=== PATIENT | male | born 1955 | race Caucasian/White ===

== ENCOUNTER 2017-12-30 12:31 | Day surgery (SDC) | payer MEDICARE, OTHER ==
--- NOTE | 2017-12-30 11:24 | HP ---
CC: Dr. Duff; Dr. Mukherjee DATE OF ADMISSION: 12/30/2017. HISTORY OF PRESENT ILLNESS: Mr. Woods is a 62-year-old white male who is admitted with a 1 cm obstructing calculus of the proximal left ureter for cystoscopy and placement of a left ureteral stent. Please refer to the detailed history and physical by Shanell Santos NP included in the chart. Mr. Woods has past history of renal calculus disease and in February 1999, I had performed a left ureteroscopy and stent placement. The stone analysis was calcium oxalate. He did very well and had a follow-up renal ultrasound in September 2010 showing minimal caliectasis, but no recurrent calculi. The patient has not been seen in my office since that time. Pt is seen in Oncology by Dr. Duff because of thrombocytopenia. He was worked up by Ms. Santos because of an elevated serum and creatinine of 2.1. His baseline has been in the vicinity of 1.3. He had a renal ultrasound which showed moderate to severe left hydronephrosis. He then had a noncontrast CT of the abdomen and pelvis which confirmed the left hydronephrosis and there was a 1.1 cm calculus in the proximal left ureter. No other abnormalities were noted and no other calculi were seen. He did have a significant hepatosplenomegaly which is consistent with his medical condition. Past history is relevant for bladder outlet obstruction symptoms. He has nocturia about two to three times, day frequency about four to five times. He reports having some hesitancy and decreased urinary stream. He denies any episodes of gross hematuria or urinary tract infection. The left hydronephrosis noted recently has been totally asymptomatic and he denies any recent episodes of renal colic, gross hematuria, or flank pain. PAST MEDICAL HISTORY AND SYSTEM REVIEW: The patient has iron deficiency and unspecified thrombocytopenia for which he is being followed by Dr. Duff. He is diabetic, maintained on Metformin 1 gm daily. He has hyperlipidemia, on Simvastatin 20 mg daily. He has chronic back pain and history of spinal stenosis for which he takes Oxycodone 5 mg twice a day and Oxymorphone 10 mg extended release twice a day. He has hypertension on Metoprolol 75 mg daily. He denies any chest pains or shortness of breath. ALLERGIES: He denies any allergies to medications. PHYSICAL EXAMINATION GENERAL: He is a pleasant, obese, white male, who is in no pain. VITAL SIGNS: Blood pressure 130/80, pulse of 60. LUNGS: Clear. HEART: Regular and rhythmic. No murmurs. ABDOMEN: Soft, obese, no tenderness and no CVA tenderness. EXTERNAL GENITALIA: He is not circumcised. No penile lesions. Normal testes and on inguinal hernias. RECTAL: Shows a slightly enlarged, but non-suspicious prostate. LABORATORY DATA: Urine analysis in my office shows +1 protein, negative otherwise. IMPRESSION: 1. Asymptomatic left hydronephrosis caused by a 1 cm calculus in the proximal left ureter. 2. Thrombocytopenia. 3. Chronic anemia. 4. Chronic back pain on opiates. 5. Hypertension. 6. Diabetes. PLAN: Cystoscopy, left retrograde pyelography, and placement of left ureteral stent in preparation for definitive treatment of the stone. I discussed the above plans in detail with the patient and his and all their questions were answered. They both understand that he will require additional procedures for definitive treatment of the stone. [id number]/[facility] #: [id number]
[~2017-12-30 12:31] MED LIST: Buffered Lidocaine 0.9% SYRIN* 5 ML/SYR SYRINGE INTRADERM ONE; Famotidine IV* 10 MG/ML 2 ML (20 mg) IV ONE
[2017-12-30] MEDS ORDERED: Famotidine IV* 10 MG/ML 2 ML (20 mg) ONE (12:54)
[2017-12-30] MEDS ORDERED: Iohexol 180 (CONTRAST) 10 ML SDV IV ONE (13:01)
[2017-12-30] MEDS ORDERED: cefTRIAXone(*) 2 GM ADDV.VIAL IVPB ONE (13:22)
[2017-12-30] MEDS ORDERED: Midazolam* 1 MG/ML 2 ML VIAL (2 MG) ONE (14:13)
[2017-12-30] MEDS ORDERED: fentaNYL* 50 MCG/ML 5 ML VIAL (250 MCG VIAL) ONE (14:13)
[2017-12-30] MEDS ORDERED: Rocuronium* 10 MG/ML VIAL ONE (14:18)
[2017-12-30] MEDS ORDERED: Ondansetron INJ* 2 MG/ML VIAL ONE (15:17)
[2017-12-30] MEDS ORDERED: Lidocaine 2% PF * 5 ML VIAL ONE (15:19)
[2017-12-30] MEDS ORDERED: Propofol* 10 MG/ML 20 ML BTL IV PUSH ONE (15:19)
[2017-12-30] MEDS ORDERED: DiMENhydriNATE IV* 50 MG/ML VIAL IV PUSH PRN (16:10)
[2017-12-30] MEDS ORDERED: fentaNYL* 50 MCG/ML 2 ML VIAL (100 MCG VIAL) IV PRN (16:10)
[2017-12-30] MEDS ORDERED: oxyCODONE/Acetamin 5/325 MG* TAB PO PRN (16:10)
[2017-12-30] MEDS ORDERED: Naloxone* 0.4 MG/ML 1 ML VIAL IV PRN (16:10)
[2017-12-30] MEDS ORDERED: PROCHLORPERAZINE INJ 5 MG/ML 2 ML VIAL IV PRN (16:10)
[2017-12-30] MEDS ORDERED: Acetaminophen TAB* 325 MG PO PRN (16:10)
[2017-12-30 16:13] VITALS: BP 125/79
[2017-12-30] MEDS ORDERED: oxyCODONE/Acetamin 5/325 MG* TAB ONE (16:31)
--- NOTE | 2017-12-31 08:06 | OP ---
CC: Dr. Mukherjee; Dr. Duff OPERATIVE REPORT: DATE OF OPERATION: 12/30/17 DATE OF : 55 SURGEON: Dr. Reveles. ANESTHESIOLOGIST: Dr. Paniagua. ANESTHESIA: General. PRE-OP DIAGNOSES: 1. Left proximal ureteral calculus. 2. Left hydronephrosis due to above. 3. Decreased renal function due to above. POST-OP DIAGNOSES: 1. Left proximal ureteral calculus. 2. Left hydronephrosis due to above. 3. Decreased renal function due to above. OPERATIVE PROCEDURE: 1. Cystoscopy. 2. Left retrograde pyelography. 3. Placement of left ureteral stent (6-Cape Verdean). INDICATION FOR PROCEDURE: Mr. Woods is a 62-year-old white male who gives a distant history of renal calculus disease and who was referred to my office yesterday by Ms. Shanell Santos, from Dr. Duff's office, because of an elevated serum creatinine of 2.1, left hydronephrosis, and a 1 cm obstructing calculus in the proximal left ureter. Because of the above history and finding, the patient is taken to the operating room on a semiurgent basis for left ureteral stent placement. PATHOLOGY AT CYSTOSCOPY: The penile and bulbar urethrae looked normal. The prostatic urethra measured 2.5 cm in length and there was only slight enlargement of the prostate. Examination of the bladder showed normal ureteral orifices. No suspicious bladder lesions were seen. No calculi or diverticula were noted. On fluoroscopy, the left ureteral calculus could not be seen. Upon left retrograde pyelography, there was severe left hydronephrosis. Hydronephrotic drip was noted from the left kidney. DESCRIPTION OF PROCEDURE: After successful general anesthesia with the patient in the dorsal lithotomy position and after proper scrubbing and draping, cystoscopy was performed. The bladder was carefully inspected and the above findings were noted. A flexible-tip guidewire was then introduced into the left orifice and positioned in the area of the renal pelvis. An open-ended catheter was fed on top of the guidewire and positioned in the renal pelvis. There was a hydronephrotic drip noted. Contrast was then injected delineating a dilated collecting system. A size 6-C[place] Verdean stent was then placed with the proximal end coiling in the renal pelvis and the distal end coiling inside the bladder. There was prompt drainage of contrast from the kidney. A 16-[place] catheter was then passed inside the bladder. The patient tolerated the procedure well and left the operating room in good condition. The plan is to obtain a KUB postoperatively to plan the definitive treatment of the stone. [id number]/[facility] #: [id number] MTDD
== END 2017-12-30 16:45 | disposition home or self-care (01) ==
LOC: OR 12:31
PROVIDERS: ATTEND Urology
DX: N13.2 Hydronephrosis with renal and ureteral calculous obstruction (principal); Z87.442 Personal history of urinary calculi; D69.6 Thrombocytopenia, unspecified; R16.2 Hepatomegaly with splenomegaly, not elsewhere classified; E11.9 Type 2 diabetes mellitus without complications; Z79.84 Long term (current) use of oral hypoglycemic drugs; E78.5 Hyperlipidemia, unspecified; I10 Essential (primary) hypertension; M54.9 Dorsalgia, unspecified; Z79.891 Long term (current) use of opiate analgesic; D64.9 Anemia, unspecified
CPT/HCPCS: 74018; 74420; A9270-GY; C1876; J0696; J2250; J2405; J2704; J3010

== ENCOUNTER 2018-01-25 07:15 | Day surgery (SDC) | payer MEDICARE, OTHER ==
--- NOTE | 2018-01-16 21:07 | HP ---
CC: Dr. Duff.* HISTORY AND PHYSICAL: DATE OF PLANNED ADMISSION AND SURGERY: 01/25/18 HISTORY OF PRESENT ILLNESS: Mr. Woods is a 62-year-old white male, who is admitted with a left ureteral calculus for cystoscopy, left ureteroscopy, laser lithotripsy, and left ureteral stent exchange. Please refer to my detailed history and physical and to the history and physical by Ms. Shanell Santos, oncolgy N.PClement, included in his admission for 12/30/17. Mr. Woods is a 62-year-old white male, who was diagnosed on a CT scan for abdominal pain and decreased renal function to have a 1-cm obstructing calculus in the proximal left ureter associated with an elevated serum creatinine. He was taken to the operating room on 12/30/17, and underwent a cystoscopy and a placement of left ureteral stent. Bood work following the procedure showed the renal function to have improved. KUB failed to show any calcification along the ureter indicating that the stone is radiolucent. The patient is known to have history of gout, and that would put him at a higher risk of having uric acid renal calculi. The patient has been doing well since the stent placement. He is now admitted for treatment of the stone. PAST MEDICAL HISTORY AND SYSTEM REVIEW: The patient is followed by Dr. Duff because of thrombocytopenia. He is diabetic, maintained on metformin 1 g daily. He has hyperlipidemia, on simvastatin 20 mg daily. He has chronic back pain and history of spinal stenosis for which he takes oxycodone 5 mg twice a day and oxymorphone 10 mg extended release twice a day. He has hypertension, on metoprolol 75 mg daily. He denies any chest pain or shortness of breath. ALLERGIES: The patient denies any allergies to medications. FAMILY HISTORY: lung cancer in his mother. SOCIAL HISTORY: He is and lives with his . He has 2 children. He is a nonsmoker and denies any alcohol intake. PHYSICAL EXAMINATION GENERAL: He is a moderately overweight white male, who is in no pain. VITAL SIGNS: Blood pressure 130/80, pulse of 60. LUNGS: Clear. HEART: Regular and rhythmic. No murmurs. ABDOMEN: Soft. No masses. No tenderness and no CVA tenderness. EXTERNAL GENITALIA: Normal. RECTAL EXAM: Showed a slightly enlarged, but nonsuspicious prostate. IMPRESSION: 1. A 1-cm proximal, radiolucent left ureteral calculus, probably uric acid in composition. 2. Status post placement of left ureteral stent. 3. Thrombocytopenia. 4. Chronic back pain, on opiates. 5. Hypertension. 6. Diabetes mellitus. PLAN: Cystoscopy, left ureteroscopy, laser lithotripsy, and left ureteral stent exchange. I discussed the above plans with the patient, all his questions were answered. [id number]/[facility] #: [id number] [place]
[~2018-01-25 07:15] MED LIST changes: +Metoclopramide IV* 5 MG/ML 2 ML VIAL IV SLOW PU ONE
[2018-01-25] MEDS ORDERED: oxyCODONE SR TAB(*) 10 MG TAB.SR ONE (07:49)
[2018-01-25] MEDS ORDERED: Metoclopramide IV* 5 MG/ML 2 ML VIAL ONE (07:49)
[2018-01-25] MEDS ORDERED: cefTRIAXone(*) 2 GM ADDV.VIAL IVPB ONE (07:50)
[2018-01-25] MEDS ORDERED: Famotidine IV* 10 MG/ML 2 ML (20 mg) ONE (07:50)
[2018-01-25] MEDS ORDERED: fentaNYL* 50 MCG/ML 2 ML VIAL (100 MCG VIAL) ONE (08:09)
[2018-01-25] MEDS ORDERED: Midazolam* 1 MG/ML 2 ML VIAL (2 MG) ONE (08:09)
[2018-01-25] MEDS ORDERED: Iohexol 180 (CONTRAST) 10 ML SDV IV ONE (08:48)
[2018-01-25] MEDS ORDERED: Ondansetron INJ* 2 MG/ML VIAL ONE (09:50)
[2018-01-25] MEDS ORDERED: fentaNYL* 50 MCG/ML 2 ML VIAL (100 MCG VIAL) IV PRN (10:51)
[2018-01-25] MEDS ORDERED: Naloxone* 0.4 MG/ML 1 ML VIAL IV PRN (10:51)
[2018-01-25] MEDS ORDERED: DiMENhydriNATE IV* 50 MG/ML VIAL IV PUSH PRN (10:51)
[2018-01-25] MEDS ORDERED: Propofol* 10 MG/ML 20 ML BTL ONE (11:13)
[2018-01-25 11:43] VITALS: BP 115/67
--- NOTE | 2018-01-25 16:15 | OP ---
CC: Dr. Mukherjee; Dr. Duff * DATE OF OPERATION: 01/25/18 - [facility] DATE OF : 55 SURGEON: Joss Reveles MD ANESTHESIOLOGIST: Dr. Brad Mccarthy. ANESTHESIA: General. PRE-OP DIAGNOSES: 1. Proximal left ureteral calculus. 2. Status post placement left ureteral stent. POST-OP DIAGNOSIS: 1. Left renal calculus (1 cm). 2. Status post placement, left ureteral stent. OPERATIVE PROCEDURE: 1. Cystoscopy. 2. Left ureteroscopy and extraction of left ureteral calculi. 3. Left pyeloscopy and laser lithotripsy of left renal calculus (1 cm). INDICATIONS FOR PROCEDURE: Mr. Woods is a 62-year-old white male, who presented about 3 weeks ago with decreased renal function and an obstructing 1 cm calculus in the proximal left ureter. He had urgent placement of a left ureteral stent. His renal function recovered. Postoperative KUB showed the stent in good position, but the calculus could not be visualized suggestive that it is uric acid in composition. The patient is brought in for treatment of the stone. PATHOLOGY: At Fluoroscopy the left ureteral stent was in good position, and again, the calculus could not be visualized, indicating it is a radiolucent stone. At cystoscopy, the penile and bulbar urethrae looked normal. The prostatic urethra measured about 2.5 cm in length and there was only a mild obstruction by the prostate. Examination of the bladder showed the distal limb of the stent coming from the left orifice. The bladder wall looked normal. There were no suspicious bladder lesions seen. Upon left ureteroscopy, stone fragments measuring about 5 mm each were visualized and were extracted. They had dark color and probably are calcifications that formed over the stent rather than primary ureteral calculi. The large calculus was not seen in the proximal ureter. At flexible ureteroscopy and pyeloscopy, the calculus was noted in an upper pole calyx of the left kidney. It measured about 1 cm in size. It was yellowish in color suggestive it is uric acid in composition. DESCRIPTION OF PROCEDURE: After successful general anesthesia, the patient was placed in the lithotomy position and was prepped and draped for a cystoscopy. Cystoscopy was performed. The left ureteral stent was removed and the guidewire was introduced inside the left ureter and positioned in the renal pelvis. A 6.5 semi-rigid ureteroscope was then introduced inside the bladder. A flexible tip basket was introduced through the port of the ureteroscope and the flexible tip was then introduced into the left ureter alongside the guidewire. That allowed the atraumatic introduction of the ureteroscope in the ureter, which was already dilated from the stent. The ureteroscope was then passed all the way into the ureter. Several stone fragments were noted and they were extracted with a basket and sent for stone analysis. The ureteroscope was introduced all the way into the proximal ureter at the ureteropelvic junction and the larger calculus was not visualized. The ureteroscope was then removed keeping the guidewire in place. A 10-12 Guyanese access sheath was fed on top of the guidewire and positioned in the mid ureter. A flexible ureteroscope was then introduced through the access sheath and a guidewire was passed through the port of the ureteroscope, allowing the introduction of the ureteroscope inside the renal pelvis in an atraumatic way. The guidewire was removed keeping the ureteroscope in place. The calyces were inspected and the calculus was identified in an upper to mid pole calyx. Using the 200 micron laser fiber, the stone was broken into multiple fragments. The fragments were felt to be small enough they should pass spontaneously. Because of the relatively narrow access sheath, no attempt was made at extraction of the fragments. After good fragmentation of the stone, the ureteroscope and access sheath were removed, and the guide wire repositioned. Retrograde pyelography was performed showing no extravasation. A black silicon stent, 26 cm long, 7-Guyanese was then positioned with the proximal end coiling in the renal pelvis and the distal end coiling inside the bladder. There was good drainage of contrast from the kidney and no extravasation. The patient tolerated the procedure well and left the operating room in good condition. The plan is to place the patient on urinary alkalinization with potassium citrate 20 mEq twice a day, and on Allopurinol 300 mg daily (Pt has elevated serum Uric Acid at 8.5) The plan is to leave the stent for 3 to 4 weeks to allow for the stone fragments to be dissolved and then the stent will be removed in the office as an outpatient. [id number]/[facility] #: [id number] MTDD
== END 2018-01-25 11:58 | disposition home or self-care (01) ==
LOC: OR 07:15
PROVIDERS: ATTEND Urology
DX: N13.2 Hydronephrosis with renal and ureteral calculous obstruction (principal); D69.6 Thrombocytopenia, unspecified; I10 Essential (primary) hypertension; E11.9 Type 2 diabetes mellitus without complications; Z79.84 Long term (current) use of oral hypoglycemic drugs; E78.5 Hyperlipidemia, unspecified; M54.9 Dorsalgia, unspecified
CPT/HCPCS: 36415; 74420; 82365; 84550; 88300; A9270-GY; C1876; J0696; J2250; J2405; J2704; J2765; J3010

== ENCOUNTER 2018-08-09 10:08 | Inpatient (IN) | payer MEDICARE, OTHER ==
[~2018-08-09 10:08] MED LIST changes: -Buffered Lidocaine 0.9% SYRIN* 5 ML/SYR SYRINGE INTRADERM ONE; +Buffered Lidocaine 1% SYRIN* 1 ML/SYRINGE INTRADERM ONE; -Famotidine IV* 10 MG/ML 2 ML (20 mg) IV ONE; +Famotidine IV* 10 MG/ML 2 ML (20 mg) ONE; +Lactated Ringers 1000 ML Bag* 1,000 ML IV SCH; -Metoclopramide IV* 5 MG/ML 2 ML VIAL IV SLOW PU ONE
--- OUTSIDE RECORDS SUMMARY | 2018-08-09 10:13 | XMS REPORT | Continuity of Care Document ---
:1955 External Reference #:[id number] Author Name Jacque Landaverde Care Team Providers Name Role Phone Quirino Mukherjee MD Primary Care Physician Unavailable Payers Date Identification Numbers Payment Provider Subscriber Policy Number: [id number] Medicare Huy Woods PayID: [id number] [address] [place] [address] Effective: 2016 Policy Number: [id number] [facility] Huy Woods PayID: [id number] [address] [place] [address] Expires: 2016 Policy Number: [id number] [facility] Huy Woods Group Number: [id number] [address] PayID: [id number] Gerardo# [id number] [place] [address] Onset: 2012 Policy Number: [id number] [facility] Huy Woods Group Number: [id number] [address] PayID: [id number] [address] Effective: 2011 Policy Number: [id number] [employer] Huy Woods Expires: 2012 PayID: [id number] [address] [address] [place]anez [address] Effective: 2013 Policy Number: [id number] [employer] Huy Woods Expires: 2015 PayID: [id number] [address] [address] [place] Yanez [address] Problems Active Problems Provider Date Lumbosacral spondylosis without myelopathy Da Mancia M.D. Onset: Lumbar sprain Da Mancia M.D. Onset: 01/16/2013 Lumbar spondylosis Da Mancia M.D. Onset: 12/09/2014 Sciatica Da Mancia M.D. Onset: 01/07/2015 Right bundle branch block Angela Hilton M.D. Onset: 11/11/2016 Preoperative cardiovascular examination Angela Hilton M.D. Onset: 06/15/2018 Family History Date Family Member(s) Observation Comments General Heart Disease General Cancer General Diabetes Father Heart Disease of [place] 65 yo. : (age 65 Father due to Heart Years) Disease Mother Lung Cancer 68 yo. 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 Tobacco Use Start: Unknown Never Smoked Cigarettes Tobacco Use Start: Unknown Secondhand smoke As a child, inside Smoking Status Reviewed: 07/11/18 Secondhand smoke As a child, inside ETOH Use Denies alcohol use Tobacco Use Start: Unknown Patient has never smoked Recreational Drug Use Denies Drug Use Exercise Type/Frequency Exercises sporadically walking 2 times per week Allergies, Adverse Reactions, Alerts Description No Known Drug Allergies Medications Active Medications SIG Qnty Indications Ordering Date Provider Potassium Citrate ER 2 by mouth every Gris Maya, 06/13/2018 day 10Meq (1080 mg) Tablets ER Vitamin C 1 by mouth every Unknown 1000mg day Tablets Allopurinol 1 by mouth every Unknown 300mg day Tablets Oxymorphone HCL ER 1 by mouth two Unknown times per day 10mg Tablets ER 12HR Vitamin B12 1 tablet po daily Unknown 1000mg Simvastatin 1 tablet po daily Quirino Mukherjee 20mg Lexi MD Tablets Irbesartan 1 by mouth every Unknown 150mg day Am Tablets Metformin HCL ER 1 by mouth with Unknown breakfast and 2 500mg Tablets ER with dinner 24HR Oxycodone HCL 1 by mouth four Unknown 5mg times a day as Tablets needed Arthrotec take one tablet by Unknown 75-0.2mg mouth twice a day Tablets DR as needed Gabapentin 1 by mouth three Unknown 300mg times daily Prilosec 1 po qd 30caps Quirino Mukherjee 20mg MD Lexi Capsules DR Glucosamine 1 po twice daily Quirino Mukherjee Chondroitin 1500 MD Lexi Complex 1500Com Capsules Metoprolol Tartrate 1 1/2 po daily 180tabs Quirino Mukherjee MD Lexi 50mg Tablets History Medications Dexamethasone take at bedtime 1tabs E27.8 Rajesh Lowery MD 05/10/2018 - 1mg Tablets on the evening 06/12/2018 prior to in the morning lab draw Acupuncture prn for pain Da Jerry 06/14/2014 - Jenny Mancia 05/09/2018 Mobic once daily with 60tabs Steffen Valladares, 07/18/2013 - 15mg Tablets food as needed M.D. 03/19/2014 Valium 1 by mouth 2 2tabs Cassius Galeano, 07/04/2013 - 5mg Tablets hours prior to M.D. 07/13/2013 test, may take one more 1 hour prior as needed anxiety Neurontin One tab po after 90caps Cassius Galeano, 05/11/2012 - 100mg Capsules work, one after M.D. 01/16/2013 dinner, 2 before bed Valium 1 tab po 2 hours 2tabs Cassius Galeano, 03/09/2012 - 5mg Tablets prior to mri june M.D. 10/31/2012 take one more q 1 hr prn anxiety Alprazolam x1 for stress Unknown - 0.25mg Tablets test 07/06/2018 Potassium Chloride 2 by mouth twice Unknown - Tracy ER daily 06/13/2018 10Meq Tablets ER Vitamin C Gummie daily Unknown - 06/13/2018 Ferrex 150 1 cap po 4 x per Ozzie Duff - 150mg Capsules lisa Conn MD 05/09/2018 Fiber Therapy 1 table po daily Unknown - Am 05/09/2018 Allergy Relief 1 tablet po at Unknown - bedtime as 07/10/2018 needed Opana ER 1 tablet po Unknown - 15mg Tab ER 12H twice daily 11/10/2016 Abuse-Det Oxymorphone HCL ER take 1 tab by Unknown - 15mg mouth at night 04/26/2018 Tablets ER 12HR Meloxicam Unknown - 12/19/2013 Oxycontin 1 po bid- not on Garrett, - 20mg T12a med list MD Sundar 10/19/2016 Oxycontin 1 po bid 60units Froylan, - 10mg T12a MD Cassius 04/20/2013 Oxycodone/Acetaminophe 2 tablet by 30caplewis Tucker, - n mouth every 4-6 MD Sundar 03/19/2014 5-500mg Capsules hours as needed Micardis 1 po qd 90tabs Quirino Mukherjee - 40mg Tablets MD Lexi 11/10/2016 Neurontin take one capsule 40caps Quirino Mukherjee - 300mg Capsules by [facility] three MD Lexi 03/19/2014 times a daay Medications Administered in Office Medication SIG Qnty Indications Ordering Provider Date Inj, Regadenoson, 0.1 MG Elan Culver, DO [facility] 07/04/2018 Injection Technetium TC 99M Elan Culver, DO [facility] 07/04/2018 Tetrofosmin, Per Unit Dose Up To 40 Millicuries Injection Technetium TC 99M Elan Culver, DO [facility] 07/04/2018 Tetrofosmin, Per Unit Dose Up To 40 Millicuries Injection Technetium TC 99M [facility] 11/17/2016 Tetrofosmin, Per Unit Dose Up To 40 Millicuries Injection Inj, Regadenoson, 0.1 MG Elan Culver, DO [facility] 11/16/2016 Injection Technetium TC 99M Elan Culver, DO [facility] 11/16/2016 Tetrofosmin, Per Unit Dose Up To 40 Millicuries Injection Vital Signs Date Vital Result Comment 07/11/2018 8:17am Height 70 inches 5'10" Weight 272.00 lb Heart Rate 66 /min BP Systolic Sitting 116 mmHg right upper arm large cuff BP Diastolic Sitting 68 mmHg right upper arm large cuff Respiratory Rate 12 /min O2 % BldC Oximetry 94 % BMI (Body Mass Index) 39.0 kg/m2 07/07/2018 8:09am Height 70 inches 5'10" Weight 274.12 lb with shoes Heart Rate 72 /min BP Systolic Sitting 140 mmHg BP Diastolic Sitting 72 mmHg BP Systolic Standing 136 mmHg BP Diastolic Standing 68 mmHg BMI (Body Mass Index) 39.3 kg/m2 Ejection Fraction 60-65% Echo 06/22/18 06/15/2018 3:27pm Height 70 inches 5'10" Weight 276.00 lb with out shoes Heart Rate 76 /min BP Systolic Sitting 110 mmHg Lue lg cuff BP Diastolic Sitting 70 mmHg Lue lg cuff BP Systolic Standing 106 mmHg Lue lg cuff BP Diastolic Standing 70 mmHg Lue lg cuff Respiratory Rate 16 /min BMI (Body Mass Index) 39.6 kg/m2 06/13/2018 8:07am Height 70 inches 5'10" Weight 274.12 lb Heart Rate 55 /min BP Systolic Sitting 128 mmHg Lue large cuff BP Diastolic Sitting 70 mmHg Lue large cuff Respiratory Rate 16 /min O2 % BldC Oximetry 97 % On Ra BMI (Body Mass Index) 39.3 kg/m2 Neck Circumference in inches 19.5 05/10/2018 11:04am Height 70 inches 5'10" Weight 279.00 lb w/ shoes Heart Rate 74 /min BP Systolic Sitting 147 mmHg BP Diastolic Sitting 70 mmHg BMI (Body Mass Index) 40.0 kg/m2 11/19/2016 10:00am Height 70 inches 5'10" Weight 289.00 lb w/ shoes Heart Rate 60 /min reg BP Systolic Sitting 136 mmHg Lue, lg cuff BP Diastolic Sitting 90 mmHg Lue, lg cuff BP Systolic Standing 130 mmHg Lue BP Diastolic Standing 84 mmHg Lue Respiratory Rate 16 /min BMI (Body Mass Index) 41.5 kg/m2 Ejection Fraction 72% as of 11/16/16 stress test 11/11/2016 8:25am Height 70 inches 5'10" Weight 293.00 lb with shoes Heart Rate 64 /min reg with ectopy BP Systolic 120 mmHg Rue lg cuff BP Diastolic 78 mmHg Rue lg cuff BP Systolic Sitting 152 mmHg Lue lg cuff BP Diastolic Sitting 70 mmHg Lue lg cuff BP Systolic Standing 136 mmHg Lue lg cuff BP Diastolic Standing 80 mmHg Lue lg cuff Respiratory Rate 16 /min BMI (Body Mass Index) 42.0 kg/m2 05/20/2015 9:52am Height 70 inches 5'10" Weight 295.00 lb Heart Rate 78 /min BP Systolic Sitting 140 mmHg BP Diastolic Sitting 90 mmHg Pain Level 5 BMI (Body Mass Index) 42.3 kg/m2 03/11/2015 9:35am Height 70 inches 5'10" Weight 295.00 lb Heart Rate 78 /min BP Systolic Sitting 150 mmHg BP Diastolic Sitting 80 mmHg Pain Level 4 BMI (Body Mass Index) 42.3 kg/m2 01/07/2015 10:50am Height 70 inches 5'10" Weight 295.00 lb BP Systolic Sitting 130 mmHg BP Diastolic Sitting 90 mmHg Pain Level 4 back BMI (Body Mass Index) 42.3 kg/m2 12/09/2014 10:53am Height 70 inches 5'10" Weight 295.00 lb Heart Rate 76 /min BP Systolic Sitting 144 mmHg BP Diastolic Sitting 80 mmHg Pain Level 5 back BMI (Body Mass Index) 42.3 kg/m2 09/13/2014 10:40am Height 70 inches 5'10" Weight 295.00 lb Heart Rate 60 /min BP Systolic Sitting 148 mmHg BP Diastolic Sitting 90 mmHg Pain Level 3 back/r leg BMI (Body Mass Index) 42.3 kg/m2 06/14/2014 9:34am Height 70 inches 5'10" Weight 295.00 lb Heart Rate 62 /min BP Systolic Sitting 138 mmHg BP Diastolic Sitting 84 mmHg Pain Level 2 back BMI (Body Mass Index) 42.3 kg/m2 03/19/2014 10:13am Height 70 inches 5'10" Weight 296.00 lb Heart Rate 78 /min BP Systolic Sitting 128 mmHg BP Diastolic Sitting 70 mmHg Pain Level 3 back BMI (Body Mass Index) 42.5 kg/m2 12/19/2013 10:34am Height 70 inches 5'10" Weight 281.00 lb Heart Rate 60 /min BP Systolic Sitting 124 mmHg lg BP Diastolic Sitting 80 mmHg lg Pain Level 3 back BMI (Body Mass Index) 40.3 kg/m2 12/12/2013 9:28am Height 70 inches 5'10" Weight 285.00 lb Heart Rate 66 /min BMI (Body Mass Index) 40.9 kg/m2 10/15/2013 9:47am Height 70 inches 5'10" Weight 285.00 lb Heart Rate 68 /min BP Systolic Sitting 124 mmHg BP Diastolic Sitting 70 mmHg Pain Level 2 back & R leg BMI (Body Mass Index) 40.9 kg/m2 10/10/2013 8:47am Height 70 inches 5'10" Heart Rate 64 /min BP Systolic 126 mmHg BP Diastolic 77 mmHg 08/29/2013 2:37pm Height 70 inches 5'10" Weight 284.00 lb Heart Rate 78 /min BP Systolic 121 mmHg BP Diastolic 71 mmHg BMI (Body Mass Index) 40.7 kg/m2 07/18/2013 9:12am Height 70 inches 5'10" Weight 284.00 lb Heart Rate 76 /min BMI (Body Mass Index) 40.7 kg/m2 07/13/2013 9:49am Height 70 inches 5'10" Weight 284.00 lb BP Systolic 122 mmHg BP Diastolic 80 mmHg Pain Level 3 back BMI (Body Mass Index) 40.7 kg/m2 07/04/2013 9:18am Height 70 inches 5'10" Heart Rate 76 /min BP Systolic 132 mmHg BP Diastolic 79 mmHg 05/30/2013 10:02am Height 70 inches 5'10" Heart Rate 74 /min BP Systolic 139 mmHg BP Diastolic 81 mmHg 04/20/2013 10:25am Height 70 inches 5'10" Weight 293.00 lb BP Systolic 132 mmHg BP Diastolic 82 mmHg Pain Level 2 back BMI (Body Mass Index) 42.0 kg/m2 01/16/2013 9:16am Height 70 inches 5'10" Weight 275.00 lb BP Systolic 148 mmHg BP Diastolic 90 mmHg Pain Level 2 low back BMI (Body Mass Index) 39.5 kg/m2 10/31/2012 10:02am Height 70 inches 5'10" Weight 294.00 lb BP Systolic 140 mmHg BP Diastolic 90 mmHg Pain Level 2 left lower back BMI (Body Mass Index) 42.2 kg/m2 Results Test Date Facility Test Result H/L Range Note Laboratory test 05/16/2018 [facility] Cortisol 1.77 g/dL [address] [place] [address] [phone] Acth <5.0 pg/mL Abnormal 2 Renin 2.3 ng/mL/h 3 Catecholamine 24HR 05/15/2018 [facility] Urine Collection 24 h Urine Fract [address] [place] [address] [phone] Urine Total Volume 3000 mL Urine Norepinephrine 39 mcg/24h 15-80 Urine Epinephrine 2.1 mcg/24h <21 Urine Dopamine 219 mcg/24h 65-400 4 Creatinine 24HR 05/15/2018 [facility] Urine Collection 24 hr Urine [address] [place] [address] [phone] Urine Total Volume 3000 mL Urine Creatinine Concentration 65.23 mg/dL Urine Creatinine/24 Hour 1956.90 mg/24Hr High 600-1800 Urine Metanephrines 05/15/2018 [facility] Urine 135 mcg/24h [address] [place] [address] [phone] Urine Normetanephrine 573 mcg/24h 6 Urine Total Metanephrines 708 mcg/24h 7 Urine Collection Duration 24 h Urine Volume 3000 mL 8 Cortisol Free 05/15/2018 [facility] Urine Free 63 mcg/24h Abnormal 3.5-45 24HR Urine [address] [place] [address] [phone] Urine Collection Duration 24 h Urine Total Volume 3000 mL 9 Basic Metabolic Panel 05/15/2018 [facility] Sodium 138 mmol/L N 135-[address] [place] [address] [phone] Potassium 4.8 mmol/L N 3.5-5.0 Chloride 102 mmol/L N 101-111 Co2 Carbon Dioxide 28 mmol/L N 22-32 Anion Gap 8 mmol/L N 2-11 Glucose 179 mg/dL High 70-100 Blood Urea Nitrogen 24 mg/dL N 6-24 Creatinine 1.31 mg/dL High 0.67-1.17 BUN/Creatinine Ratio 18.3 N 8-20 Calcium 9.2 mg/dL N 8.6-10.3 Egfr Non- 55.3 >60 Egfr 66.9 >60 10 Metanephrines 05/15/2018 [facility] Plasma Free 0.78 <0.[address] Normetanephrine nmol/[place] [address] [phone] Plasma Free Metanephrine <0.20 nmol/L <0.50 11 Laboratory test 05/15/2018 [facility] Aldosterone <4.0 ng/dL <=21 [address] [place] [address] [phone] Laboratory test 05/10/2018 Outpatient Receptionist In House Glucose Random 171 finding Drug Abuse 20 08/15/2014 [facility] Urine Negative N [address] Amphetamine ng/[place] [address] [phone] Urine Barbiturates Negative ng/mL N 14 Urine Benzodiazepines Negative ng/mL N 15 Urine Cocaine Negative ng/mL N 16 Urine Methadone Negative ng/mL N 17 Urine Opiates Presumptive Posi <SEE NOTE> ng/mL N 18 Urine Phencyclidine Negative ng/mL N Cutoff: 25 Urine Tetrahydrocannabinol Negative ng/mL N Cutoff: 20 19 Urine Oxycodone Presumptive Posi <SEE NOTE> ng/mL N 20 Confirm 08/15/2014 [facility] Urine Codeine Negative ng/mL N [address] Confirmation (GC/MS) [place] [address] [phone] Urine Hydrocodone Confirm Negative ng/mL N 22 Urine Hydromorphone Confirm Negative ng/mL N 23 Urine Morphine Confirm Negative ng/mL N 24 Urine Oxymorphone Confirm 6100 ng/mL N 25 Urine Oxycodone Confirm 6100 ng/mL N 26 Urine Opiates Interpretation See Comment N 27 1 AM 8.7-22.4 PM <10 2 REFERENCE VALUE 7.2-63 (a.m. collection) Test Performed by: [facility] [address] [place] [address] 3 REFERENCE VALUE (Peripheral vein specimen) Na-deplete, upright: Mean: 5.9 Range: 2.9-10.8 Na-replete, upright: Mean: 1.0 Range: < or=0.6-3.0 ADDITIONAL INFORMATION Testing performed by Liquid Chromatography-Tandem Mass Spectrometry (LC-MS/MS). This test was developed and its performance characteristics determined by [facility] in a manner consistent with CLIA requirements. This test has not been cleared or approved by the U.S. Food and Drug Administration. Test Performed by: [facility] [place] [facility] [place] [id number] 4 ADDITIONAL INFORMATION This test was developed and its performance characteristics determined by [facility] in a manner consistent with CLIA requirements. This test has not been cleared or approved by the U.S. Food and Drug Administration. Test Performed by: [facility] [place] [employer] [address] [place] [id number] 5 REFERENCE VALUE 44-261 (Normotensive) <400 (Hypertensive) 6 REFERENCE VALUE 138-521 (Normotensive) <900 (Hypertensive) 7 REFERENCE VALUE 233-716 (Normotensive) <1300 (Hypertensive) 8 ADDITIONAL INFORMATION This test was developed and its performance characteristics determined by [facility] in a manner consistent with CLIA requirements. This test has not been cleared or approved by the U.S. Food and Drug Administration. Test Performed by: [facility] [place] [address] [place] [address] 9 ADDITIONAL INFORMATION This test was developed and its performance characteristics determined by [facility] in a manner consistent with CLIA requirements. This test has not been cleared or approved by the U.S. Food and Drug Administration. Test Performed by: [facility] - [address] [address] Because ethnic data is not always readily available, this report includes an eGFR for both -Americans and non- Americans. The National Kidney Disease Education Program (NKDEP) does not endorse the use of the MDRD equation for patients that are not between the ages of 18 and 70, are , have extremes of body size, muscle mass, or nutritional status, or are non- or non-. According to the National Kidney Foundation, irrespective of diagnosis, the stage of the disease is based on the level of kidney function: Stage Description GFR(mL/min/1.73 m(2)) 1 Kidney damage with normal or decreased GFR 90 2 Kidney damage with mild decrease in GFR 60-89 3 Moderate decrease in GFR 30-59 4 Severe decrease in GFR 15-29 5 Kidney failure <15 (or dialysis) 11 ADDITIONAL INFORMATION This test was developed and its performance characteristics determined by [facility] in a manner consistent with CLIA requirements. This test has not been cleared or approved by the U.S. Food and Drug Administration. Test Performed by: [facility] - [address] [address] ADDITIONAL INFORMATION Reference range for patients 11 years and older is based on upright A.M. collection from subjects without sodium restrictions. This test was developed and its performance characteristics determined by [facility] in a manner consistent with CLIA requirements. This test has not been cleared or approved by the U.S. Food and Drug Administration. Test Performed by: [facility] [address] , [place] [address] 13 REFERENCE VALUE Cutoff: 500 14 REFERENCE VALUE Cutoff: 200 15 REFERENCE VALUE Cutoff: 200 16 REFERENCE VALUE Cutoff: 150 17 REFERENCE VALUE Cutoff: 150 18 Presumptive Positive Drug confirmation to follow. Presumptive Positive means that the screening method is positive, but the test needs to be run by a confirmatory method before being finalized. REFERENCE VALUE Cutoff: 300 19 ADDITIONAL INFORMATION This report is intended for use in clinical monitoring or management of patients. It is not intended for use in employment-related testing. 20 Presumptive Positive Drug confirmation to follow. Presumptive Positive means that the screening method is positive, but the test needs to be run by a confirmatory method before being finalized. REFERENCE VALUE Cutoff: 100 ADDITIONAL INFORMATION This report is intended for use in clinical monitoring or management of patients. It is not intended for use in employment-related testing. Test Performed by: [facility] - [address] [address] [employer] Trimmer: Cesar Nielsen II, M.D., Ph.D. 21 REFERENCE VALUE Cutoff: 100 22 REFERENCE VALUE Cutoff: 100 23 REFERENCE VALUE Cutoff: 100 24 REFERENCE VALUE Cutoff: 100 25 REFERENCE VALUE Cutoff: 100 26 REFERENCE VALUE Cutoff: 100 27 Positive. Codeine testing performed at a x2 dilution; limit of quantitation is elevated. ADDITIONAL INFORMATION This report is intended for use in clinical monitoring and management of patients. It is not intended for use in employment-related testing. Test Performed by: [facility] - [address] [address] [employer] Trimmer: Cesar Nielsen II, M.D., Ph.D. Procedures Date Code Description Status 07/04/2018 37410 Stress Test Completed 07/04/2018 99951 Myocardial Perfusion Imaging Tomographic (Spect) Multiple Completed Studies 06/22/2018 66453 ECHO Transthoracic, Real-Time 2D With Doppler And Color Completed Flow 06/17/2018 62409 Sleep Study Unattended,HRT Rate,Oxygen Sat,Resp Completed Effort/Airflow 06/15/2018 34248 EKG Tracing & Interpretation Completed 11/16/2016 21821 Stress Test Completed 11/16/2016 77798 Myocardial Perfusion Imaging Tomographic (Spect) Multiple Completed Studies 11/11/2016 39502 EKG Tracing & Interpretation Completed 05/30/2013 47976 Rad Shoulder Comp, Min. 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 I10 Essential (primary) hypertension Office Visit 11/19/2016 Sanaz Hilton I45.19 Other right 10:20a Cardiology Of M.DClement bundle-branch block [place] [place] [facility] [place].49 Family hx of ischem heart dis and oth dis of the circ sys Office Visit 11/11/2016 Sanaz Hilton I45.10 Unspecified right 8:30a Cardiology Of MClemente bundle-branch block [place] [facility] E11.8 Type 2 diabetes mellitus with unspecified complications E78.5 Hyperlipidemia, unspecified I10 Essential (primary) hypertension I87.2 Venous insufficiency (chronic) (peripheral) Z82.49 Family hx of ischem heart dis and oth dis of the circ sys Office Visit 05/20/2015 Skip Jerry S33.5xxS Sprain of 10:00a Services Of Lisbeth Mancia M.D. 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 myelopathy or radiculopathy, lumbar region S33.5xxS Sprain of ligaments of lumbar spine, sequela Office Visit 09/13/2014 10:20a Neurosurgery Da Issa1.3 Spondylosis Services Of Lisbeth Mancia M.D. Lumbar W/O Myelopathy 847.2 Sprains & Strains Lumbar Office Visit 06/14/2014 9:40a Skip Jerry 721.3 Spondylosis Services Of Lisbeth Mancia M.D. Lumbar W/O Myelopathy 847.2 Sprains & Strains Lumbar Office Visit 03/19/2014 10:00a Skip Jerry 721.3 Spondylosis Services Of Lisbeth Mancia M.D. Lumbar W/O Myelopathy 847.2 Sprains & Strains Lumbar Office Visit 12/19/2013 10:40a Skip Jeryr 721.3 Spondylosis Services Of Lisbeth Mancia M.D. Lumbar W/O Myelopathy 847.2 Sprains & Strains Lumbar Office Visit 10/15/2013 9:40a Skip Jerry 721.3 Spondylosis Services Of Lisbeth Mancia M.D. Lumbar W/O Myelopathy 847.2 Sprains & Strains Lumbar Office Visit 10/10/2013 8:45a Orthopedic Cassius Galeano 719.41 Pain Joint Services Of M.D. Shoulder Region C.M.A. Office Visit 08/29/2013 2:30p Orthopedic Eileen Luu, 354.0 Carpal Tunnel Services Of RPA-C Syndrome C.M.A. 719.41 Pain Joint Shoulder Region Office Visit 07/18/2013 9:15a Orthopedic Cassius Galeano 719.41 Pain Joint Services Of M.D. Shoulder Region C.M.A. 354.0 Carpal Tunnel Syndrome Office Visit 07/13/2013 10:00a Neurosurgery Da Jerry 721.3 Spondylosis Services Of Lisbeth Mancia M.D. Lumbar W/O Myelopathy 847.2 Sprains & Strains Lumbar Office Visit 07/04/2013 9:15a Orthopedic Cassius Galeano 719.41 Pain Joint Services Of M.D. Shoulder Region C.M.A. 354.0 Carpal Tunnel Syndrome 239.9 Neoplasm Unspecified Site Unspecified Office Visit 05/30/2013 Orthopedic Cassius Almazan9.41 Pain Joint 10:00a Services Of Queta Galeano M.D. Shoulder Region Office Visit 04/20/2013 Skip Jerry 721.3 Spondylosis 10:20a Services Of Lisbeth Mancia M.D. Lumbar W/O Myelopathy 847.2 Sprains & Strains Lumbar Office Visit 01/16/2013 9:20a Neurosurgery Da Jerry 721.3 Spondylosis Services Of Lisbeth Mancia M.D. Lumbar W/O Myelopathy 847.2 Sprains & Strains Lumbar Office Visit 10/31/2012 10:00a Neurosurgery Da Jerry 721.3 Spondylosis Services Of Lisbeth Mancia M.D. Lumbar W/O Myelopathy 724.3 Sciatica Office Visit 10/13/2012 1:00p Neurosurgery Da Jerry 721.3 Spondylosis Services Of Lisbeth Mancia M.D. Lumbar W/O Myelopathy 724.3 Sciatica Office Visit 05/11/2012 Elizabeth Pereyra.3 Sciatica 3:15p Services Of Jenny Galeano.M.AClement Office Visit 03/09/2012 Elizabeth Hammonds 724.3 Sciatica 3:30p Services Of Jenny Galeano C.M.AClement Office Visit 01/27/2012 Orthopedic Cassius 724.3 Sciatica 11:00a Services Of Jenny Galeano C.M.A. Office Visit 12/29/2011 Orthopedic Cassius 715.96 Osteoarthrosis 8:00a Services Of Jenny Galeano Unspec Genlzd Or C.M.A. Localized Lower Leg 724.3 Sciatica Plan of Treatment Future Appointment(s):08/23/2018 8:30 am - Nannette Baez NP at [facility]11/01/2018 9:20 am - Rajesh Lowery MD at [facility]07/11/2018 - Nannette Baez NPG47.33 Obstructive sleep apnea (adult) (pediatric)New Orders:Sleep-Homecare, Ordered: 07/11/18Follow up:6 weeksRecommendations:You are being set up with CPAP for your sleep apnea through [facility] . They will call you to set up an appointment to get fit for a mask and machine operator picker your machine. If you have difficulty with your equipment, or need to replace your mask or hoses, please contact your homecare agency. If you have any further questions, please call the [facility] at [phone] If you have any sleepiness while driving you MUST avoid operating a vehicle or machinery.E66.9 Obesity, unspecifiedRecommendations:Keep up the good work with your weight loss efforts. Many people are able to decrease the severity of their sleep apnea with weight loss, and some are able to eliminate it entirely.
[2018-08-09] MEDS ORDERED: ceFAZolin 2 GM in NS PREMIX(*) 2 GM/100 ML BAG IVPB ONE (10:33)
[2018-08-09] MEDS ORDERED: Heparin VIAL(*) 5000 UNITS/ML VIAL (FIVE THOUSAND) ONE (10:33)
[2018-08-09] MEDS ORDERED: ceFAZolin 1 GM ADVAN(*) 1 GM ADDV.VIAL IVPB ONE (10:33)
[2018-08-09] MEDS ORDERED: Buffered Lidocaine 1% SYRIN* 1 ML/SYRINGE INTRADERM ONE (11:09)
[2018-08-09] MEDS ORDERED: fentaNYL* 50 MCG/ML 2 ML VIAL (100 MCG VIAL) ONE ×4 (11:15→14:46)
[2018-08-09] MEDS ORDERED: Midazolam* 1 MG/ML 2 ML VIAL (2 MG) ONE ×2 (11:15→12:16)
[2018-08-09] MEDS ORDERED: Bupivacaine 0.25% W/EPI* 10 ML SDV ONE (11:42)
[2018-08-09] MEDS ORDERED: Dexamethasone IV* 4 MG/ML 1 ML (4 MG) ONE (12:16)
[2018-08-09] MEDS ORDERED: Propofol* 10 MG/ML 20 ML BTL ONE (12:16)
[2018-08-09] MEDS ORDERED: Lidocaine 2% PF * 5 ML VIAL ONE (12:17)
[2018-08-09] MEDS ORDERED: Rocuronium* 10 MG/ML VIAL ONE ×2 (12:17→12:22)
[2018-08-09] MEDS ORDERED: EPHEDrine (Pressors)* 50 MG/ML VIAL ONE (12:28)
[2018-08-09] MEDS ORDERED: Acetaminophen IV 1GM/100ML * 100 ML ONE (13:16)
[2018-08-09] MEDS ORDERED: PROCHLORPERAZINE INJ 5 MG/ML 2 ML VIAL IV PRN (13:23)
[2018-08-09] MEDS ORDERED: Ondansetron INJ* 2 MG/ML VIAL IV PRN (13:23)
[2018-08-09] MEDS ORDERED: Naloxone* 0.4 MG/ML 1 ML VIAL IV PRN (13:23)
[2018-08-09] MEDS ORDERED: Levalbuterol 0.63MG/3ML NEB* UNIT OF USE INH PRN (13:23)
[2018-08-09] MEDS ORDERED: fentaNYL* 50 MCG/ML 2 ML VIAL (100 MCG VIAL) IV PRN (13:23)
[2018-08-09] MEDS ORDERED: DiMENhydriNATE IV* 50 MG/ML VIAL IV PUSH PRN (13:23)
[2018-08-09] MEDS ORDERED: diPHENhydraMINE IV* 50 MG/ML 1 ml VIAL (BENADRYL) IV PRN (13:23)
[2018-08-09] MEDS ORDERED: Ondansetron INJ* 2 MG/ML VIAL ONE (13:41)
[2018-08-09] MEDS ORDERED: Bupivacaine 0.25% EPI 200,000* 30 ML SDV ONE (13:56)
[2018-08-09] MEDS ORDERED: Glycopyrrolate IV* 0.2 MG/ML 1 ML VIAL ONE (13:58)
[2018-08-09] MEDS ORDERED: Neostigmine Methylsulfate* 1 MG/ML 10 ML VIAL (1 mg/ml) ONE (13:58)
[2018-08-09] MEDS ORDERED: HYDROmorphone INJ1* 1 MG/ML SYRINGE IV SLOW PU PRN (14:27)
[2018-08-09] MEDS ORDERED: diPHENhydraMINE IV* 50 MG/ML 1 ml VIAL (BENADRYL) SLOW PUSH PRN (14:27)
[2018-08-09] MEDS ORDERED: Acetaminophen ADULT LIQ* 650 MG/20.3 ML UDC PO PRN (14:27)
[2018-08-09] MEDS: fentaNYL* 50 MCG/ML 2 ML VIAL (100 MCG VIAL) IV PRN ×4 (14:27→15:04)
--- NOTE | 2018-08-09 14:27 | OP ---
Operative Report - Blank - Operative Report Date of Operation: 08/09/18 Note: Brief Operative Note Preop Dx: Morbid Obesity Postop Dx: same, plus nodular liver Procedure: Laparoscopic sleeve gastrectomy; liver biopsy Anesthesia: GET Surgeon: Travis Family Resource Coordinator: FLORES Green Fluids: 1400 ml RL EBL: < 50 ml Specimen: portion of stomach; liver biopsy Drains: none Findings: dictated
[2018-08-09] MEDS ORDERED: Dextrose 50% Syringe 50 ML* 25 GM/50 ML SYRINGE IV PUSH PRN (14:34)
[2018-08-09] MEDS ORDERED: Morphine 4 MG/ML VIAL (1 ml) 4 MG/ML VIAL ONE (15:11)
[2018-08-09] MEDS: Morphine 4 MG/ML VIAL (1 ml) 4 MG/ML VIAL IV PRN ×2 (15:12→15:22)
[2018-08-09] MEDS: Ondansetron INJ* 2 MG/ML VIAL IV PRN (17:49)
[2018-08-09] MEDS: HYDROmorphone INJ1* 1 MG/ML SYRINGE IV SLOW PU PRN ×2 (17:49→21:15)
[2018-08-09] MEDS: Insulin LISPRO* 1 UNITS UNIT SUBCUT SCH (17:56)
[2018-08-09] MEDS: Metoprolol Tartrate IV* 1 MG/ML 5 ML VIAL IV SCH (18:49)
[2018-08-09] MEDS: Heparin VIAL(*) 5000 UNITS/ML VIAL (FIVE THOUSAND) SUBCUT SCH (21:48)
[2018-08-09] MEDS: Lactated Ringers 1000 ML Bag* 1,000 ML IV SCH (23:16)
[2018-08-10] MEDS: Metoprolol Tartrate IV* 1 MG/ML 5 ML VIAL IV SCH ×4 (00:14→18:12)
[2018-08-10] MEDS: HYDROmorphone INJ1* 1 MG/ML SYRINGE IV SLOW PU PRN ×6 (00:15→21:42)
[2018-08-10] MEDS: Insulin LISPRO* 1 UNITS UNIT SUBCUT SCH ×4 (00:33→17:19)
[2018-08-10] MEDS: Ondansetron INJ* 2 MG/ML VIAL IV PRN ×2 (03:22→09:37)
[2018-08-10] MEDS: Lactated Ringers 1000 ML Bag* 1,000 ML IV SCH ×2 (05:55→12:55)
[2018-08-10] MEDS: Heparin VIAL(*) 5000 UNITS/ML VIAL (FIVE THOUSAND) SUBCUT SCH ×3 (06:22→22:03)
[2018-08-10] MEDS: Famotidine IV* 10 MG/ML 2 ML (20 mg) IV SLOW PU SCH (06:23)
--- NOTE | 2018-08-10 12:23 | PN ---
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 and doesn't feel pain is well controlled [] Objective:UGI:no enteric leak Vital Signs Temp 99.8 F 08/10/18 11:33 Pulse 62 08/10/18 11:33 Resp 16 08/10/18 11:51 BP 139/56 08/10/18 11:33 Pulse Ox 94 08/10/18 11:33 Intake & Output 08/09/18 08/10/18 08/10/18 18:59 06:59 18:59 Intake Total 1400 2302 Output Total 275 1550 Balance 1125 752 Weight 261 lb Intake: IV Fluids 1400 1981 LR 1400 1981 Oral 320 Output: Urine 275 1550 lungs:clear bilat;heart:RRR;abd:quiet,soft;all incisions intact with dressings, no erythema or drainage;R thigh with resolving ecchymosis( states bruise was present before admission);ext:nontender calves;skin changes of venous insufficiency noted,no ulcerations 08/09/18 08/09/18 08/10/18 10:48 17:56 00:26 POC Glucose (mg/dL) 115 H 101 H 149 H 08/10/18 11:48 POC Glucose (mg/dL) 143 H [] Assessment:POD#1 s/p laparoscopic sleeve gastrectomy;needs pain management plan [] Plan:start aiyana clears ambulate,inspiron will address pain issues []
[2018-08-10] MEDS ORDERED: HYDROmorphone INJ1* 1 MG/ML SYRINGE IV SLOW PU PRN (12:32)
[2018-08-10] MEDS: Oxymorphone ER (NF) 5 MG TAB PO SCH (14:37)
[2018-08-10] MEDS: HYDROcodone/ACET. 7.5/325 LIQ* 15 ML UDC PO PRN (17:09)
[2018-08-10] MEDS: D5W 1/2 NS KCl 20 Meq 1000 ML* 1,000 ML IV SCH (17:09)
--- NOTE | 2018-08-10 17:22 | OP ---
CC: Quirino Mukherjee MD; Dr. Hank Mason; Dr. Rajesh Lowery; [facility]; Dr. Ozzie Duff; Allie Singh NP, Pain Clinic * DATE OF OPERATION: 08/09/18 - ROOM #353 DATE OF : 55 PRIMARY CARE DOCTOR: Quirino Mukherjee MD. SURGEON: Elan Robles MD. GLASS TECHNICIAN/INSTALLER: FLORES Ma. ANESTHESIOLOGIST: Dr. Gallagher. ANESTHESIA: General. PRE-OP DIAGNOSES: 1. Clinically severe obesity. 2. Type 2 diabetes. POST-OP DIAGNOSES: 1. Clinically severe obesity. 2. Nodular liver. OPERATIVE PROCEDURE: Laparoscopic sleeve gastrectomy and Abraham-Cut liver biopsy. BLOOD LOSS: Less than 50 cc. IV FLUIDS: 1400 cc of crystalloid fluid given. SPECIMEN: 1. Portion of the stomach. 2. Liver biopsy. DRAINS: None. DESCRIPTION OF PROCEDURE: The patient was identified in the preoperative area. Consent was signed. He was marked, brought up to the operating room, and placed on the operating table in the supine position. Preoperative antibiotics were given. Sequential devices were placed on bilateral lower extremities and general anesthesia was induced. The patient's abdomen was prepped and draped in standard surgical fashion. A time-out was performed. Folds of the umbilicus were elevated anteriorly and a Veress needle was inserted into the abdominal cavity, which was then allowed to insufflate to a pressure of 15 mmHg. The patient tolerated the insufflation well. A periumbilical incision was made in the area. A 12 mm Optiview trocar was inserted into the abdomen. Laparoscope was inserted through this and there was no evidence of injury from the trocar insertion or from the Veress needle, which was then removed. Additional trocars were then placed in the following position: Two 5 mm in the left upper quadrant and 12 mm in the right upper quadrant. The table was placed in steep reverse Trendelenburg. A Cristian retractor was inserted through a subxiphoid incision in the liver, which appeared significantly nodular throughout, was retracted anteriorly to the right. This exposed the gastroesophageal fat pad, which was grasped and retracted towards the right lower quadrant. Blunt dissection was carried out to expose the left crura. Next, a retrogastric tunnel was made 5 cm proximal to the pylorus on the greater curvature and the LigaSure device was used to take the blood supply to the greater curvature. We did posterior attachments in a similar fashion until the stomach could be completely rotated on its axis. Next, a sleeve stomach was created using 60 mm purple PRIYA stapling device with reinforcements, starting at the antrum of the stomach and extending towards the incisura. A 40-Nepali bougie was placed into the distal stomach prior to firing the first staple line. Additional staple lines of similar 60 mm purple staplers with reinforcement strips were utilized to complete the sleeve stomach. Next, the specimen was placed in the endoscopic retrieval bag. Review of the staple line showed the area of the first staple line was somewhat thin and at this point, I decided to place a 3-0 silk suture to imbricate the staple line at that site. A single stitch was used. Rest of the staple line appeared intact and we then turned our attention to the liver. A Abraham-Cut biopsy was then performed on two passes of the liver and hemostasis was achieved with cautery. Next, the liver retractor was removed. The patient was placed in a neutral position and the resected portion of the stomach was removed through the right upper quadrant incision site. We did enter into the stomach to fully remove it and then we put this on the back table. The fascia was closed with 0 Vicryl suture at the right upper quadrant port site. Additional ports were removed under direct vision and the abdomen was allowed to collapse. All 5 skin incisions were reapproximated with 4-0 Monocryl subcuticular sutures. Steri- Strips and sterile dressing were applied. The patient tolerated the procedure well, was woken up, and transferred to the PACU in stable condition. [id number]/[facility] #: [id number] [facility] HOSPITALMatthew
[2018-08-11] MEDS: Insulin LISPRO* 1 UNITS UNIT SUBCUT SCH ×3 (00:14→13:12)
[2018-08-11] MEDS: Metoprolol Tartrate IV* 1 MG/ML 5 ML VIAL IV SCH ×3 (00:21→12:12)
[2018-08-11] MEDS: Oxymorphone ER (NF) 5 MG TAB PO SCH (01:19)
[2018-08-11] MEDS: D5W 1/2 NS KCl 20 Meq 1000 ML* 1,000 ML IV SCH ×2 (01:19→09:49)
[2018-08-11] MEDS: HYDROmorphone INJ1* 1 MG/ML SYRINGE IV SLOW PU PRN (03:33)
[2018-08-11] MEDS: Heparin VIAL(*) 5000 UNITS/ML VIAL (FIVE THOUSAND) SUBCUT SCH (06:22)
[2018-08-11] MEDS: Famotidine IV* 10 MG/ML 2 ML (20 mg) IV SLOW PU SCH (06:24)
[2018-08-11] MEDS: HYDROcodone/ACET. 7.5/325 LIQ* 15 ML UDC PO PRN ×2 (06:42→13:11)
[2018-08-11 11:16] VITALS: BP 144/63
--- NOTE | 2018-08-11 12:19 | PN ---
Progress Note - Progress Note Date of Service: 08/11/18 Note: S: POD #2. Seen w/ Dr. Robles. Yu bronson clears well. Ambulating. Passing flatus. O: Vital Signs - 8 hr 08/11/18 08/11/18 08/11/18 04:17 06:32 06:42 Temperature 98.1 F Pulse Rate 68 Respiratory 16 16 16 Rate Blood Pressure 127/57 (mmHg) O2 Sat by Pulse 96 Oximetry 08/11/18 08/11/18 08/11/18 07:29 08:15 08:42 Temperature 97.4 F Pulse Rate 60 Respiratory 18 16 16 Rate Blood Pressure 128/62 (mmHg) O2 Sat by Pulse 97 Oximetry 08/11/18 11:15 Temperature 98.4 F Pulse Rate 63 Respiratory 18 Rate Blood Pressure 144/63 (mmHg) O2 Sat by Pulse 98 Oximetry Intake and Output Last 24 Hours 08/09/18 08/10/18 08/11/18 08/12/18 06:59 06:59 06:59 06:59 Intake Total 3702 1410 1000 Output Total 1825 3100 Balance 1877 -1690 1000 Weight 261 lb Intake: IV Fluids 3382 990 1000 D5W 1/2 NS 20 meq KCL 990 1000 LR 3382 Oral 320 420 Output: Urine 1825 3100 Other: # Bowel Movements 0 fs glucoses: Laboratory Tests 08/09/18 08/09/18 08/10/18 10:48 17:56 00:26 POC Glucose (mg/dL) 115 H 101 H 149 H 08/10/18 08/10/18 08/10/18 11:48 17:15 23:58 POC Glucose (mg/dL) 143 H 118 H 152 H Gen: sitting up in chair; appears comfortable Heart: reg Lungs: clear Abd: lap sites ok; +BS; soft; moderately tender at incisions sites; remainder soft, nontender A: s/p lap sleeve gastrectomy, doing well P: home today; instructions reviewed; [facility]
--- NOTE | 2018-08-11 13:44 | DS ---
CC: Dr. Mukherjee; [facility]; Pain Clinic at [facility] * DISCHARGE SUMMARY: DATE OF ADMISSION: 08/09/18 DATE OF DISCHARGE: 08/11/18 ATTENDING SURGEON: Dr. Elan Robles * (FLORES Ma dictating) HOSPITAL COURSE: Please refer to admission history and physical and operative note for details. The patient underwent laparoscopic sleeve gastrectomy on with Dr. Robles. Surgery itself was relatively unremarkable. However, one of the findings at the time of surgery was diffusely nodular liver and therefore a liver biopsy was taken at the time. Pathology is still pending. The patient did have an otherwise normal upper GI study. On postoperative day # 1, and commenced bariatric clear liquids. As of the morning of postoperative day #2, he was tolerating bariatric clear liquids well and pain was controlled reasonably well with his usual pain regimen. See separate progress note from the same date. IMPRESSION: Status post laparoscopic sleeve gastrectomy, doing well; liver biopsy pathology pending. PLAN: Home today, instructions were reviewed regarding wound care, diet and activity. In terms of his home meds, he will resume his usual pain regimen as well as potassium citrate, omeprazole, metoprolol, gabapentin, diclofenac, and allopurinol. He may use Tylenol p.r.n. He will hold his usual metformin as well as simvastatin at this point. He has a followup scheduled at [facility] for next week. Depending on his hydration status he may need a recheck on his renal function test at that time. He is discharged to home in good condition. FLORES [place] [id number]/[facility] #: [id number] [facility]
== END 2018-08-11 15:58 | disposition home or self-care (01) | DRG 621 ==
LOC: AA 10:08 → SSU 16:55
PROVIDERS: ADMIT Surgery; ATTEND Surgery
PROC: 0FB04ZX Excision of Liver, Percutaneous Endoscopic Approach, Diagnostic (ICD-10-PCS; 2018-08-09)
PROC: 0DB64Z3 Excision of Stomach, Percutaneous Endoscopic Approach, Vertical (ICD-10-PCS; principal; 2018-08-09 12:00)
DX: E66.01 Morbid (severe) obesity due to excess calories (principal); Z68.38 Body mass index [BMI] 38.0-38.9, adult; E78.5 Hyperlipidemia, unspecified; K21.9 Gastro-esophageal reflux disease without esophagitis; G47.33 Obstructive sleep apnea (adult) (pediatric); D17.79 Benign lipomatous neoplasm of other sites; F41.9 Anxiety disorder, unspecified; N18.2 Chronic kidney disease, stage 2 (mild); I12.9 Hypertensive chronic kidney disease with stage 1 through stage 4 chronic kidney disease, or unspecified chronic kidney disease; E11.22 Type 2 diabetes mellitus with diabetic chronic kidney disease; M19.90 Unspecified osteoarthritis, unspecified site; M10.9 Gout, unspecified; K76.9 Liver disease, unspecified; M54.30 Sciatica, unspecified side; M48.00 Spinal stenosis, site unspecified; Z96.0 Presence of urogenital implants; Z87.442 Personal history of urinary calculi; Z80.1 Family history of malignant neoplasm of trachea, bronchus and lung; Z82.49 Family history of ischemic heart disease and other diseases of the circulatory system; Z83.3 Family history of diabetes mellitus; Z83.49 Family history of other endocrine, nutritional and metabolic diseases
CPT/HCPCS: 74246; 88307; 88313; A9270-GY; J0690; J1100; J1170; J1644; J2250; J2270; J2405; J2704; J2710; J3010; J3490